=== PATIENT | male | born 1960 | race Caucasian/White ===

== ENCOUNTER → 2024-01-25 12:45 | Outpatient (CLI) | payer OTHER, SELFPAY ==
[2024-01-25 13:39] LABS: Add Manual Diff / Slide Review NO; Basophils Absolute Auto 0 /uL (0-100); Basophils Percent Auto 0.3 % (0-2); Eosinophils Absolute Auto 100 /uL (0-450); Eosinophils Percent Auto 0.8 % (2-4); Hematocrit 39.7 % (41-53); Hemoglobin 13.5 g/dL (13.5-17.5); Lymphocytes Absolute Auto 3700 /uL (1100-4500); Lymphocytes Percent Auto 42.9 % (25-40); Mean Corpuscular Hemoglobin 32.8 PG (26-34); Mean Corpuscular Volume 96.4 fL (80-100); Monocytes Absolute Auto 400 /uL (0-900); Monocytes Percent Auto 5.3 % (3-14); Neutrophils Absolute Auto 4300 /uL (1500-7000); Neutrophils Percent Auto 50.7 % (50-75); Platelet Count 221 X10^3/uL (150-400); Red Blood Cell Count 4.12 X10^6/uL (4.5-5.9); Red Cell Distribution Width 13.8 % (11.6-14.8); White Blood Cell Count 8.6 X10^3/uL (4.5-11.0)
[2024-01-25 13:57] LABS: Erythrocyte Sedimentation Rate 6 MM/HR (0-15)
[2024-01-25 14:05] LABS: BUN Creatinine Ratio 25.9 (6-22); Blood Urea Nitrogen 21 mg/dL (9-20); C-Reactive Protein Quant < 0.5 mg/dL (<1.0); Calcium 9.3 mg/dL (8.4-10.2); Carbon Dioxide 27 mmol/L (22-32); Chloride 108 mmol/L (98-107); Estimated Glomerular Filt Rate > 60 mL/min (>60); Glucose 95 mg/dL (80-110); HEMOLYSIS < 15 (0-50); Potassium 4.4 mmol/L (3.4-5.1); Sodium 139 mmol/L (137-145)
== END ==
LOC: RESP 12:52
PROVIDERS: Orthopaedic Surgery; PCP Family Medicine; Referring Provider Family Medicine; Visit Provider Family Medicine
DX: Z01.818 Encounter for other preprocedural examination (principal); Z01.812 Encounter for preprocedural laboratory examination; R70.0 Elevated erythrocyte sedimentation rate; R79.82 Elevated C-reactive protein (CRP)
CPT/HCPCS: 36415; 80048; 85025; 85651; 86140; 93005

== ENCOUNTER 2024-03-21 08:38 | Inpatient (IN) | payer OTHER, SELFPAY ==
[2024-03-13 08:55] VITALS: BMI 25.5
[2024-03-21] VITALS (10 sets, daily range): BP systolic 101–138; BP diastolic 56–78; PULSE 52–59; RESP 8–18; TEMP 36.4–36.6; O2SAT 92–99; BMI 24.9
--- NOTE | 2024-03-21 06:00 | DI.RAD.S_ITS ---
PROCEDURE: XR SHOULDER RT 1V INDICATIONS: Reverse total shoulder arthroplasty TECHNIQUE: 2 views of the shoulder were acquired. COMPARISON: None. FINDINGS: Bones: There are postsurgical changes of right total shoulder arthroplasty. No evidence for acute hardware complication. No acute fracture. Remainder of the visualized osseous structures appear intact. Soft tissues: No suspicious soft tissue calcifications. Expected postsurgical soft tissue changes. IMPRESSION: Expected postsurgical changes of right shoulder arthroplasty. No evidence for acute hardware complication. Dictated by: Benny Garg M.D. on 03/21/2024 at 13:26 Approved by: Benny Garg M.D. on 03/21/2024 at 13:27
[2024-03-21] MEDS: ACETAMINOPHEN 325 MG TABLET 975 MG PO (09:22)
[2024-03-21] MEDS: LACTATED RINGERS 1,000 ML 42 ML IV ×2 (09:22→13:05)
--- NOTE | 2024-03-21 09:55 | PM.PREOP ---
Pre-operative Note Interval Note History & Physical reviewed/Exam performed by Physician: Yes Changes to H&P: No
--- NOTE | 2024-03-21 10:02 | SUR.PREOP ---
0945 - Block start time. Monitoring initiated and maintained throughout procedure. Oxygen and medications given per anesthesiologist. 0948 - Time out done. 0954 - Block complete. Pt remained stable throughout procedure. No adverse reactions noted.
[2024-03-21] MEDS: TRANEXAMIC ACID 1,000 MG VIAL 1000 MG INJ (10:20)
[2024-03-21] MEDS: CEFAZOLIN 2 GM/100 ML PREMIX 100 ML IV (10:20)
--- NOTE | 2024-03-21 10:36 | SUR.OPER ---
Beach chair with Skytron shoulder positioner. Lower body on padded OR bed. Head in foam padded head cradle, secured with straps. Non-operative arm secured <90 degrees abduction. Pillow under knees. Safety belt at thigh. Cloth tape over blanket over lower legs.
[2024-03-21] MEDS: BUPIVACAINE 0.25% (PF) 30 ML, EPINEPHrine 0.15 MG INJ (10:41)
--- NOTE | 2024-03-21 11:38 | PM.OP.1 ---
Operative Date/Time/Diagnoses Date of procedure: 03/21/24 Time of procedure: 11:38 Pre-op diagnosis: Right failed primary anatomic shoulder arthroplasty Post-op diagnosis: same Procedure & Clinicians Procedure: Revision of right anatomic shoulder arthroplasty into reverse arthroplasty Same procedure as scheduled: Yes Indications: Indications: This is a who has rotator cuff arthropathy. Symptoms have been present for years, insidious onset. Patient has failed a reasonable attempt at conservative therapy. After extensive discussion in clinic, they wished to go forward with surgery. Risks and benefits were described including the risk of infection, bleeding, damage to internal structures including nerves. We also discussed the risk of failure of surgery and the need for revision surgery as well as the risk of anesthesia. The patient expressed understanding with these risks and wished to go forward with surgery. Surgeon: Marshall Lowery [employer] Mechanic: Ivy Hutchinson Anesthesia Type: General Operative Notes Findings: Findings: Failed subscapularis tendon repair and partially insufficient supraspinatus. No loosening of the stem or base plate no overt signs of infection Closure Type: primary Specimen(s): none sent Prosthetic devices, grafts, tissues, transplants, or devices: Tornier implants Base plate: standard 25 mm, +3 mm offset Glenosphere: Standard 36 mm Stem: Reunion 36 diameter humeral insert Poly: 36 x 4 mm poly to match the glenosphere Estimated Blood Loss (mL): 100 Procedure in detail: Patient was seen in the preoperative holding unit. The correct right shoulder was identified and marked with my initials. Again we discussed the risks and benefits of surgery and they wished to go forward with surgery. The patient was brought back to the operating room and placed supine on the operating table. Smooth endotracheal intubation was performed by anesthesia. All prominences were padded and they were placed into the beach chair position. Intravenous antibiotics were given. The right shoulder was then prepped with the standard sterile preparation and draping. A time-out was then performed in my initials were again identified on the correct shoulder. 1 g of IV tranexamic acid was given. A standard deltopectoral incision was made. Skin flaps were made. The cephalic vein was identified and retracted laterally. This was protected throughout the remainder of the case. Sharp dissection was made along the deltoid, subacromial and subcoracoid space to release adhesions. The conjoined tendon was identified and the axillary nerve was palpated and continuous using the tug test. It was protected throughout the remainder of the case. A brown retractor was placed underneath the deltoid muscle and a darach retractor underneath the conjoint tendon. The subscapularis muscle was ntoed to be deficient. The biceps tendon was identified in the bicipital groove. This was released from its sheath, and taken from its origin on the glenoid and tied into the pectoralis tendon for a solid tenodesis. The coracohumeral ligament was released at the base of the coracoid. The shoulder was then dislocated. The old implant was then removed, using a tuning fork instrument, from the humerus. Cultures were obtained and sent. Attention was then turned to the glenoid. After retracting the humeral head posteriorly a circumferential release was performed of the capsule with protection of the axillary nerve. The labrum was then released starting at the biceps anchor and going around the rim a small amount of triceps was released from the inferior glenoid. Once the old poly was exposed, a curved osteotome was used to shear it from the glenoid bone. There were no signs of loosening at this point and there was no bone loss. A 25 mm straight guide was used to drill a center guide pin followed by a Reamer, followed by a boss drill, followed by a center drill which was measured. The +3 mm offset 25 mm diameter base plate was then selected and screwed into place with good compression. The peripheral screws were then drilled measured and filled Turning back to the humerus, the humeral head was delivered and a new tray was selected. This was then Trialed with a 0 concentric. The arm was taken through range of motion and this was felt to be stable. The trial was then removed and a dilute Betadine wash was then performed with 1 L of sterile saline. The final implant was assembled on the back table and then was impacted into the humerus. The shoulder was then reduced and again brought through range of motion and was felt to be stable. The deltopectoral interval was then closed with #2 Ethibond. The skin was closed with 2-0 vicryl and 3-0 Monocryl followed by Aquacel dressing. Patient was awoken from anesthesia and brought back to the postoperative recovery unit without issue. They were placed into a sling. Assisting participation: This operation could not have been safely performed (without compromising the technical results or length of the procedure) without the assistance of a skilled surgical rn. The surgical rn was medically necessary for proper positioning, retraction and manipulation of instruments, proper exposure, graft prep, and manipulation of tissue. Complications: none Post-operative Condition: stable Disposition: PACU Plan for aftercare: Postoperative instructions: Sling to remain on for 6 weeks. No external rotation past neutral for 6 weeks. Okay for the sling to come off for shower. Okay to shower over the Aquacel dressing. If any water gets underneath the dressing, remove the dressing. First postoperative visit in 2 weeks.
[2024-03-21] MEDS: fentaNYL 100 MCG/2 ML INJ IV ×2 (12:40→13:00)
[2024-03-21] MEDS: hydrOXYzine 50 MG/ML INJ 25 MG IM (13:31)
[2024-03-21] MEDS: OXYCODONE IR 5 MG TABLET PO ×2 (13:34→14:02)
== END 2024-03-21 14:17 | disposition home or self-care (01) | DRG 483 ==
PROVIDERS: Admitting Provider Orthopaedic Surgery; PCP Family Medicine; Referring Provider Orthopaedic Surgery; Visit Provider Orthopaedic Surgery
PROC: 0RRJ00Z Replacement of Right Shoulder Joint with Reverse Ball and Socket Synthetic Substitute, Open Approach (ICD-10-PCS; principal; 2024-03-21 10:15)
DX: T84.098A Other mechanical complication of other internal joint prosthesis, initial encounter (principal); M67.813 Other specified disorders of tendon, right shoulder; Y79.2 Prosthetic and other implants, materials and accessory orthopedic devices associated with adverse incidents
CPT/HCPCS: 64450; 73020; 87070; 87075; 87205; C1713; C1776; J0171; J0690; J2250; J2405; J2704; J3010; J3410